=== PATIENT | female | born 1950 | race Caucasian/White ===

== ENCOUNTER 2022-06-21 14:18 | Outpatient (CLI) | payer MEDICARE ==
[~2022-06-21 14:18] MED LIST: Magnevist 469MG/ML 20 ML VIAL ONE
== END 2022-06-21 14:19 | disposition home or self-care (01) ==
LOC: CSHMRI 14:18
PROVIDERS: ATTEND Radiology Radiation Oncology
DX: C71.9 Malignant neoplasm of brain, unspecified (principal); Z98.890 Other specified postprocedural states; Z92.21 Personal history of antineoplastic chemotherapy; Z92.3 Personal history of irradiation; C71.2 Malignant neoplasm of temporal lobe; G93.6 Cerebral edema
CPT/HCPCS: 70553; A9579